=== PATIENT | female | born 1995 | race Caucasian/White ===

== ENCOUNTER 2016-08-16 19:03 | Emergency (ER) | payer MEDICAID ==
[~2016-08-16] VITALS: Ht 157.5 cm; Wt 57.6 kg
[~2016-08-16 19:03] MED LIST: LORTA5 PO; MACR100C PO; ONDA4TAB7 OR; PREN1TAB30 PO; SULF1TAB47 PO; Z.0.NO CURRENT MEDS
--- NOTE | 2016-08-16 19:54 | PD ---
HPI Chief Complaint back pain, decreased movement today, leaking Date Seen: Aug 16, 2016 Time Seen: 19:40 Travel History International Travel<30 Days: No Contact w/Intl Traveler<30Days: No Known Affected Area: No History of Present Illness HPI 21yo at 37 3/7 weeks gestation here for small amount fluid per vagina yesterday and today. Lower back pain since yesterday. Decreased movement today. Sees Dr Sevilla but has been released from the office. No records are available presently. Para: 2 : 3 History Past Medical History Medical History: Denies Significant Hx Obstetric History Obstetric History c-sections x 2 Past Surgical History Narrative Surgical Left hip surgery Right ankle surgery Family History Family History: Negative Social History Alcohol Use: No Tobacco Use: No Substance Abuse: No Allergies-Medications (Allergen,Severity, Reaction): Coded Allergies: No Known Allergies (Verified , 03/15/16) Home Meds Active Scripts Nitrofurantoin Monohyd Macro (Macrobid)100 Mg Btp130 Mg PO BID 7 Days Ref 0 Prov:Lukas Dutta MD 03/16/16 Vit W/ Ferrous Fumara ( Vitamin 27-0.8 mg)1 Tab Tab1 Tab PO DAILY #30 Prov:Melany Colbert MD 01/19/16 Ondansetron (Ondansetron Odt)4 Mg Tab4 Mg OR Q6HPRN #10 Prov:CHARLEY DOMINGUEZ MD 01/23/13 Hydrocodone-Acetaminophen 5-325 mg ([place]wood 5-325 mg)325 Mg/5 Mg Tab1 Tab PO Q4HPRN #15 Prov:CHARLEY DOMINGUEZ MD 01/23/13 Trimethoprim/Sulfamethoxazole (Bactrim Ds) Tab1 Tab PO BID #14 Prov:CHARLEY DOMINGUEZ MD 01/23/13 Reported Medications Miscellaneous (No Current Meds) Misc 04/28/12 Review of Systems Except as stated in HPI: all other systems reviewed are Neg Physical Exam Narrative GENERAL: Well-nourished, well-developed patient. SKIN: Warm and dry. HEAD: Normocephalic and atraumatic. EYES: No scleral icterus. No injection or drainage. ENT: No nasal drainage noted. Mucous membranes pink. Airway patent. NECK: Supple, trachea midline. No JVD. CARDIOVASCULAR: Regular rate and rhythm without murmurs, gallops, or rubs. RESPIRATORY: Breath sounds equal bilaterally. No accessory muscle use. BREASTS: Bilateral exam showed no masses , no retractions, no nipple discharge. ABDOMEN/GI: Abdomen soft, non-tender, bowel sounds present, no rebound, no guarding Gravid to [-] weeks size Fundal Height: [-]36 GENITOURINARY: External Genitalia: intact and normal in appearance BUS glands: [-]nl Cervix: [-]posterior Dilatation: [-] closed Effacement: [-] 0% Station: [-] -3 Presentation: [-]vertex Membranes: [intact or ruptured]no obvious rupture Uterine Contractions: [-]none FHT's: Category: [-] 1 Baseline: [-] 145 Reactive: [-] moderate Variability: [-] mod, accels present Decels: [-] absent EXTREMITIES: No cyanosis or edema. BACK: Nontender without obvious deformity. No CVA tenderness. NEUROLOGICAL: Awake and alert. Motor and sensory grossly within normal limits. Five out of 5 muscle strength in all muscle groups. Normal speech. Data Data Vital Signs Reviewed: Yes [facility] Medical Record Reviewed: No Plan Previous x 2. If patient unable to get into present practice she is referred to [facility] Will need repeat at 39 weeks, no records presently to review Diagnosis Diagnosis: Primary Impression: Decreased movement affecting management of in third trimester Additional Impressions: 37 weeks gestation of Previous delivery affecting , antepartum Disposition: 01 DISCHARGE HOME Enid Akhtar MD Aug 16, 2016 19:54
[2016-08-30] MEDS ORDERED: PREN1CAP33 PO (09:07)
== END 2016-08-16 20:04 | disposition home or self-care (01) ==
LOC: HOBED 19:03
DX: O36.8130 Decreased fetal movements, third trimester, not applicable or unspecified (principal); M54.5 Low back pain; Z3A.37 37 weeks gestation of pregnancy
CPT/HCPCS: 84112; 87081; 99284

== ENCOUNTER 2016-09-03 06:02 | Inpatient (IN) | payer MEDICAID ==
[~2016-09-03] VITALS: Ht 157.5 cm; Wt 60.8 kg
[2016-09-03] VITALS (10 sets, daily range): BP systolic 104–128; BP diastolic 49–86; PULSE 41–98; RESP 17–20; TEMP 97.7–99.1; O2SAT 98–100
[~2016-09-03 06:02] MED LIST changes: -LORTA5 PO; -MACR100C PO; -ONDA4TAB7 OR; +PREN1CAP33 PO; -PREN1TAB30 PO; -SULF1TAB47 PO; -Z.0.NO CURRENT MEDS
[2016-09-03 07:07] LABS: AUTOMATED NEUTROPHIL # 7.3 TH/MM3 (1.8-7.7); BASOPHIL % 0.3 % (0.0-2.0); EOSINOPHIL # 0.1 TH/MM3 (0-0.4); EOSINOPHIL % 0.9 % (0.0-4.0); HEMATOCRIT 29.4 % (35.0-46.0); HEMO FLAGS DIFF FINAL; LYMPH % 28.8 % (9.0-44.0); LYMPHOCYTE # 3.3 TH/MM3 (1.0-4.8); MEAN CELL VOLUME 77.5 FL (80.0-100.0); MEAN CORPUSCULAR HEMOGLOBIN 25.2 PG (27.0-34.0); MEAN CORPUSCULAR HGB CONC 32.5 % (32.0-36.0); PLATELET COUNT 206 TH/MM3 (150-450); RED CELL DISTRIBUTION WIDTH 14.5 % (11.6-17.2); WHITE BLOOD COUNT 11.3 TH/MM3 (4.0-11.0)
[2016-09-03] MEDS ORDERED: LACTATED RINGER'S 1000 ML INJ 1,000 ML IV ONE ×3 (07:26)
--- NOTE | 2016-09-03 07:26 | HHI.HP ---
History & Physical H&P HPI History of Present Illness HPI Patient is a 21-year-old white female previous 2 now 39 wks presents for repeat , she had no complaint of problems baby is active. The records with her she is only [facility] the [facility] two visits started last week. She had very little care prior to that however she did have an important event in January a first trimester ultrasound which gave her due date of 09/10/16 that ultrasound is been documented. That establishes her gestational age as 38 weeks now and she would be 39 weeks this coming Tuesday on the third. She states that also ultrasound done that showed this baby is in a breech presentation Para: 2 : 3 History Obstetric History Obstetric History 2 C-sections and late care with this and very little care prior to that the late onset. Patient did have first trimester ultrasound with this to establish a surgical gestational age. Past Surgical History Narrative Surgical 2 C-sections Family History Family History: Negative Social History Alcohol Use: No Tobacco Use: No Substance Abuse: No Allergies-Medications (Allergen,Severity, Reaction): Coded Allergies: No Known Allergies (Verified , 08/30/16) Home Meds Active Scripts Vit W/ Fe Polysacch C (Vitafol Fe+ 90-1-200 & 50 mg)1 Cap Cap1 Tab PO DAILY #30 BOTTLE Ref 11 Prov:Nataliya Ca 08/30/16 Review of Systems General / Constitutional: No: Fever, Weight Gain, Chills, Other Eyes: No: Diploplia, Blurred Vision, Visual changes, Pain, Photophobia HENT: No: Headaches, Vertigo, Lightheadedness Cardiovascular: No: Irregular Rhythm, Chest Pain or Discomfort, Palpitations, Tachycardia, Syncope, Varicosities, Edema, Cyanosis Respiratory: No: Cough, Short of Breath, Other Gastrointestinal: No: Nausea, Vomiting, Diarrhea Genitourinary: No: Decreased Urinary Output, Oliguria Musculoskeletal: No: Limited ROM, Weakness, Cramping, Edema, Pain Skin: No Rash, No Itching, No Dryness, No Lumps, No Change in Pigmentation, No Change in Nails, No Alopecia, No Lesions Neurologic: No: Weakness, Dizziness, Syncope, Focal Abnormalities, Coordination Problem, Headache, Slurred Speech, Seizures Psychiatric: No: Depression, Suicidal Ideations, Homicidal Ideation Endocrine: No: Heat Intolerance, Cold Intolerance, Polydipsia, Polyuria, Other Physical Exam Narrative GENERAL: Well-nourished, well-developed patient. SKIN: Warm and dry. HEAD: Normocephalic and atraumatic. EYES: No scleral icterus. No injection or drainage. ENT: No nasal drainage noted. Mucous membranes pink. Airway patent. NECK: Supple, trachea midline. No JVD. CARDIOVASCULAR: Regular rate and rhythm without murmurs, gallops, or rubs. RESPIRATORY: Breath sounds equal bilaterally. No accessory muscle use. BREASTS: Bilateral exam showed no masses , no retractions, no nipple discharge. ABDOMEN/GI: Abdomen soft, non-tender, bowel sounds present, no rebound, no guarding Gravid to [36-] weeks size Fundal Height: [36-] MDM Interpretation(s) This patient is a 21-year-old white female previous 2 now 3 9 weeks by first trimester ultrasound presenting for repeat section consultation. That she has not plans problems baby is active. She is had very little care was visit however she did have a first trimester ultrasound establishing her due date is 09/10/16. [facility] was [facility] by [facility] at which we will do at 39 weeks. Plan Plan this patient is for her to return this Tuesday for repeat section for previous section and breech presentation. Diagnosis: previous and breech Disposition: DISCHARGE HOME Condition: Stable Rigo Pierce II, MD Aug 31, 2016 14:06 <Electronically signed by Rigo Pierce II, MD> 08/31/16 1800 Rigo Pierce II, MD Sep 03, 2016 07:26
[2016-09-03 07:34] LABS: BACTERIA, URINE MANY /hpf; BLOOD, URINE NEG (NEG); COMMENT (UR) CULTURE INDICATED; CULTURE IF INDICATED CULTURE INDICATED; GLUCOSE,URINE NEG (NEG); KETONE, URINE NEG (NEG); NITRITE,URINE POS (NEG); PH, URINE 5.5 (5.0-8.5); SQUAMOUS EPITHELIAL CELL URINE 8 /hpf (0-5); URINE COLOR YELLOW (YELLW/STRAW)
[2016-09-03] MEDS ORDERED: LACTATED RINGER'S 1000 ML INJ 1,000 ML IV SCH ×4 (07:56→14:13)
[2016-09-03] MEDS ORDERED: OXYTOCIN 10 UNIT/ML AMP ONE (08:05)
[2016-09-03] MEDS ORDERED: CITRIC ACID-SODIUM CITRATE LIQ 30 ML UDC PO SCH ×3 (09:00)
[2016-09-03] MEDS ORDERED: KETOROLAC TROMETHAMINE 60 MG/2 ML (IM) VIAL IM PRN (09:15)
[2016-09-03] MEDS ORDERED: SODIUM CHLORIDE 0.9% FLUSH 5 ML FLUSH IV PRN (09:15)
[2016-09-03] MEDS ORDERED: SIMETHICONE 80 MG CHEWABLE TAB PO PRN (09:15)
[2016-09-03] MEDS ORDERED: ZOLPIDEM TARTRATE 5 MG TAB PO PRN (09:15)
[2016-09-03] MEDS ORDERED: oxyCODONE/ACETAMINOPHEN 5 MG/325 MG TAB PO PRN (09:15)
[2016-09-03] MEDS ORDERED: ONDANSETRON HCL 4 MG/2 ML VIAL IV PUSH PRN (09:15)
[2016-09-03] MEDS ORDERED: OXYTOCIN 30 UNITS-500ML PREMIX 500 ML IV ONE (09:15)
[2016-09-03] MEDS ORDERED: MORPHINE SULFATE PF 5 MG/10 ML VIAL ONE (09:15)
[2016-09-03] MEDS ORDERED: ACETAMINOPHEN 325 MG TAB PO PRN (09:15)
[2016-09-03] MEDS ORDERED: LACTATED RINGER'S 1,000 ML BAG IV ONE (09:28)
[2016-09-03] MEDS ORDERED: ePHEDrine/NS 50 MG/5 ML SYR IV ONE (09:28)
[2016-09-03] MEDS ORDERED: EPIDURAL-DIPHENHYDRAMINE HCL 50 MG CAP PO PRN (10:45)
[2016-09-03] MEDS ORDERED: EPIDURAL-DO NOT ADMINISTER ANTICOAGULANTS XX PRN (10:45)
[2016-09-03] MEDS ORDERED: EPIDURAL-NALOXONE HCL 0.4 MG/ML AMP IV PRN (10:45)
[2016-09-03] MEDS ORDERED: EPIDURAL-DIPHENHYDRAMINE HCL 50 MG/ML VIAL IV PUSH PRN (10:45)
[2016-09-03] MEDS ORDERED: EPIDURAL-NO SYSTEMIC NARCOTICS XX PRN (10:45)
[2016-09-03] MEDS: HYDROmorphone HCL PF 1 MG/ML VIAL IV PUSH PRN ×3 (12:17→20:59)
[2016-09-03] MEDS ORDERED: HYDROmorphone HCL PF 2 MG/ML VIAL IV PUSH PRN (12:30)
[2016-09-03] MEDS ORDERED: HYDROmorphone HCL PF 1 MG/ML VIAL IV PUSH PRN (12:30)
[2016-09-03] MEDS ORDERED: ALUMINUM/MAGNESIUM/SIMETH 30 ML CUP PO PRN (17:45)
[2016-09-03] MEDS ORDERED: OXYTOCIN 30 UNITS-500ML PREMIX 500 ML IV PRN (19:15)
[2016-09-03] MEDS ORDERED: SODIUM CHLORIDE 0.9% FLUSH 5 ML FLUSH IV SCH (21:00)
[2016-09-04] MEDS: oxyCODONE/ACETAMINOPHEN 5 MG/325 MG TAB PO PRN ×2 (04:22→16:26)
[2016-09-04] MEDS: DOCUSATE SODIUM 50 MG/SENNA 8.6 MG TAB PO PRN ×2 (04:22→12:23)
[2016-09-04] MEDS: IBUPROFEN 600 MG TAB PO PRN ×3 (04:23→21:30)
[2016-09-04 05:01] LABS: AUTOMATED NEUTROPHIL # 9.8 TH/MM3 (1.8-7.7); BASOPHIL % 0.1 % (0.0-2.0); EOSINOPHIL % 0.4 % (0.0-4.0); LYMPH % 11.6 % (9.0-44.0); LYMPHOCYTE # 1.4 TH/MM3 (1.0-4.8); MEAN CELL VOLUME 77.7 FL (80.0-100.0); MEAN CORPUSCULAR HEMOGLOBIN 25.8 PG (27.0-34.0); MEAN CORPUSCULAR HGB CONC 33.2 % (32.0-36.0); MONO % 7.1 % (0.0-8.0); NEUT % 80.8 % (16.0-70.0); PLATELET COUNT 153 TH/MM3 (150-450); RED BLOOD COUNT 2.69 MIL/MM3 (4.00-5.30); RED CELL DISTRIBUTION WIDTH 14.2 % (11.6-17.2); WHITE BLOOD COUNT 12.1 TH/MM3 (4.0-11.0)
[2016-09-04 05:20] LABS: HEMO FLAGS DIFF FINAL
[2016-09-04 05:22] LABS: HEMATOCRIT 20.9 % (35.0-46.0)
[2016-09-04 05:30] VITALS: BP 112/64; PULSE 95; RESP 18; TEMP 99.6; O2SAT 98
[2016-09-04 08:00] VITALS: BP 120/70; PULSE 80; RESP 18; TEMP 98.1
--- NOTE | 2016-09-04 09:04 | HHI.OB ---
Subjective Post Operative Day: 1 Remarks Pt seen and examined this morning. Postoperative day # 1 AFVSS overnight. Incision not draining. Decreased lochia. Denies dysuria. No breast tenderness. She is feeding the baby via breast and bottle. Appetite good. No nausea or vomiting. Patient has not yet had a bowel movement. -flatus. Ambulating well. Denies calf pain or shortness of breath. Otherwise, she is doing well this morning and has no other concerns. Objective Vitals/I&O Vital Signs Date Time Temp Pulse Resp B/P Pulse Ox O2 Delivery O2 Flow Rate FiO2 09/04/16 05:30 99.6 18 98 09/04/16 05:30 95 112/64 09/03/16 23:55 94 18 128/74 09/03/16 23:55 99.1 09/03/16 20:30 99.0 93 20 108/86 09/03/16 10:40 97.7 66 18 121/67 09/03/16 10:15 98.2 09/03/16 10:15 18 116/60 09/03/16 10:13 75 100 09/03/16 10:00 108/63 09/03/16 09:57 99 09/03/16 09:57 77 09/03/16 09:45 75 09/03/16 09:45 41 104/49 99 09/03/16 09:30 18 09/03/16 09:30 81 109/67 98 09/03/16 09:15 98 17 117/60 99 09/03/16 09:15 97.7 Result Diagram: 09/04/16 0440 Objective Remarks GENERAL: Well-nourished, well-developed patient. CARDIOVASCULAR: Regular rate and rhythm without murmurs, gallops, or rubs. RESPIRATORY: Breath sounds equal bilaterally. No accessory muscle use. ABDOMEN/GI: Abdomen soft, non-tender, bowel sounds present. Incision: Clean, dry and intact. Fundus: Firm, non-tender at umbilicus. GENITOURINARY: Light to moderate bleeding. EXTREMITIES: No cyanosis or edema, non-tender, without signs of DVT. Medications and IVs Current Medications Medications (Trade) Dose Ordered Sig/Deb Route Start Time Stop Time Status Last Admin Lactated Ringer's 1,000 ml @ 150 mls/hr Q6H40M IV 09/03/16 07:56 09/03/16 08:00 (Lr 1000 ml Inj) 1,000 ml @ 100 mls/hr Q10H IV 09/03/16 14:13 09/04/16 10:12 09/03/16 16:46 (NS Flush) 2 ml BID IV 09/03/16 21:00 (NS Flush) 2 ml UNSCH PRN IV 09/03/16 09:15 (Mylicon Chew) 80 mg QID PRN PO 09/03/16 09:15 09/03/16 20:12 (Tylenol) 650 mg Q6H PRN PO 09/03/16 09:15 (Motrin) 600 mg Q6H PRN PO 09/03/16 09:15 09/04/16 04:23 (Toradol Inj) 30 mg Q6H PRN IM 09/03/16 09:15 09/04/16 09:14 (Percocet 5-325 Mg) 1 tab Q4H PRN PO 09/03/16 09:15 (Percocet 5-325 Mg) 2 tab Q4H PRN PO 09/03/16 09:15 09/04/16 04:22 (Wanda-Colace) 2 tab Q12H PRN PO 09/03/16 09:15 09/04/16 04:22 (Ambien) 5 mg HS PRN PO 09/03/16 09:15 (M-M-R Ii Inj) 0.5 ml ONCE ONCE SQ 09/04/16 16:00 09/04/16 16:01 (Boostrix Inj) 0.5 ml ONCE ONCE IM 09/04/16 16:00 09/04/16 16:01 (Zofran Inj) 4 mg Q6H PRN IV PUSH 09/03/16 09:15 Miscellaneous Information NO SYSTEMIC NARCOTICS TO BE GIVEN FO... UNSCH PRN XX 09/03/16 10:45 09/04/16 10:44 (Narcan Inj) 0.4 mg UNSCH PRN IV 09/03/16 10:45 09/04/16 10:44 (Benadryl Inj) 25 mg Q6H PRN IV PUSH 09/03/16 10:45 09/04/16 10:44 09/04/16 00:16 (Benadryl) 50 mg Q6H PRN PO 09/03/16 10:45 09/04/16 10:44 Miscellaneous Information ALL NURSING DEPARTMENTS UNSCH PRN XX 09/03/16 10:45 09/04/16 10:44 (Dilaudid Pf Inj) 1 mg Q4H PRN IV PUSH 09/03/16 13:00 09/03/16 20:59 (Dilaudid Pf Inj) 1 mg Q4H PRN IV PUSH 09/03/16 12:30 (Dilaudid Pf Inj) 2 mg Q4H PRN IV PUSH 09/03/16 12:30 (Mag-Al Plus Susp Liq) 30 ml Q6H PRN PO 09/03/16 17:45 Assessment/Plan Problem List: (1) delivery delivered Assessment and Plan 21 y/o female who is POD# 1 s/p CXN. 1) s/p Repeat -Continue routine care. -Percocet and Motrin PRN pain. -Encouraged OOB. Advised pelvic rest for 6 wks. Will need a f/u appt. in 1-2 wks for incision check. -[employer]PH[employer] provider: [facility] -Re: ctrl, she would like consider her options. 2) Anemia -Hemoglobin low this morning at 6.9. Pt denies feeling light headed or dizzy. -Repeat CBC at 12:00. Consider transfusing if hemoglobin is less than 6.9. 3) Equivocal Rubella antibody IGG Pt refuses to have any MMR vaccine at this time She was advised that it will remain available to her 4) UA with culture indicated Urine with hazy appearance, positive nitrites, large leukocyte esterase, Many bacteria Culture results pending Keflex 500mg po BID (09/04- ) Pt previously received Ancef -Anticipate discharge in 2 days. dw MD Miguel Lutz Mariaah MD R2 Sep 04, 2016 09:04
[2016-09-04] MEDS: CEPHALEXIN MONOHYDRATE 500 MG CAP PO SCH ×2 (12:23→21:30)
[2016-09-04] MEDS: FERROUS SULFATE 325 MG (65 MG ELEMENTAL IRON) TAB PO SCH ×2 (12:23→21:30)
[2016-09-04 13:45] LABS: AUTOMATED NEUTROPHIL # 7.6 TH/MM3 (1.8-7.7); BASOPHIL % 0.2 % (0.0-2.0); EOSINOPHIL % 0.4 % (0.0-4.0); LYMPH % 19.7 % (9.0-44.0); LYMPHOCYTE # 2.1 TH/MM3 (1.0-4.8); MEAN CELL VOLUME 79.2 FL (80.0-100.0); MEAN CORPUSCULAR HEMOGLOBIN 25.4 PG (27.0-34.0); MEAN CORPUSCULAR HGB CONC 32.1 % (32.0-36.0); MONO % 7.9 % (0.0-8.0); NEUT % 71.8 % (16.0-70.0); PLATELET COUNT 150 TH/MM3 (150-450); RED CELL DISTRIBUTION WIDTH 14.5 % (11.6-17.2); WHITE BLOOD COUNT 10.6 TH/MM3 (4.0-11.0)
[2016-09-04 13:52] LABS: HEMO FLAGS DIFF FINAL
[2016-09-04 13:54] LABS: HEMATOCRIT 20.6 % (35.0-46.0)
[2016-09-04] MEDS ORDERED: diphenhydrAMINE HCL 25 MG CAP PO PRN (14:15)
[2016-09-04] MEDS ORDERED: SODIUM CHLOR 0.9% 250 ML INJ 250 ML IV ONE (14:15)
[2016-09-04] MEDS ORDERED: DIPHTH/TETANUS/ACEL PERTUSSIS (BOOSTER) 0.5 ML VIAL/PFS IM ONE (16:00)
[2016-09-04] MEDS ORDERED: MEASLES, MUMPS, RUBELLA VACCINE 0.5 ML VIAL SQ ONE (16:00)
[2016-09-04 20:05] VITALS: BP 127/75; PULSE 96; RESP 20; TEMP 98.4; O2SAT 100
[2016-09-04] MEDS ORDERED: LIDOCAINE HCL 1% PF 30 ML VIAL ONE (20:59)
[2016-09-04 21:00] VITALS: BP 127/75
--- NOTE | 2016-09-04 21:00 | MP ---
cc: FRANCESCA PIERCE MD DATE OF SURGERY 09/03/16 PREOPERATIVE DIAGNOSIS Previous caesarean section, desires repeat at term. POSTOPERATIVE DIAGNOSIS Previous caesarean section, desires repeat at term. PROCEDURE Repeat low transverse caesarean section SURGEON Gene Pierce MD ANESTHESIA Spinal INDICATIONS The patient is a 21 year old white female , previous caesarean section times two who requests repeat caesarean section at term, was now 39 weeks with scheduled section. PROCEDURE IN DETAIL This patient was taken to the operating room, placed in supine position operating room table with adequate spinal anesthesia administered. She was prepped and draped for abdominal surgery. Previous Pfannenstiel incision was excised out and carried to the fascia sharply. Fascia dissected laterally off the rectus muscle. The peritoneal dialysis entered sharply and the incision was extended superior and inferiorly with care used to avoid the bladder which was then placed on the bladder blade. The incision was stretched open. The visceral peritoneum reflected off the lower uterine segment and transverse hysterotomy was made extended bluntly bilaterally. A clear fluid noted. A male infant was delivered at 8:34 a.m. weighed 7 lb. 1 oz. Apgars 9 and 9. There were no complications. Delivery of cord blood obtained. Placenta manually extracted. The uterus exteriorized. The hysterotomy closed in running layer of 0 Chromic followed by imbricating suture of same. Hemostasis was achieved with several small stick ties. The bladder reapproximated with a running layer of 2-0 Vicryl. The uterus elevated and blood suctioned with gutters. The uterus replaced in peritoneal cavity. The parieto-peritoneum closed in running layer of 2-0 Vicryl. The fascia then closed in a running layer of 0 Vicryl. Subcutaneous tissue was reapproximated using 3-0 plain suture. Skin closed with a subcuticular stitch of 3-0 Monocryl. Pressure dressing applied. Estimated blood loss 500 mL. No complications. Sponge and needle correct times two and the patient went to recovery in stable condition. MD GILBERT Farias/ /9:19 AM /8:44 PM
[2016-09-04 21:35] VITALS: BP 107/71; PULSE 91; RESP 17; O2SAT 100
[2016-09-04 23:03] VITALS: BP 118/72; PULSE 82; RESP 18; TEMP 98.4; O2SAT 100
[2016-09-05] MEDS: IBUPROFEN 600 MG TAB PO PRN ×2 (02:36→08:07)
[2016-09-05] MEDS: oxyCODONE/ACETAMINOPHEN 5 MG/325 MG TAB PO PRN ×3 (02:37→12:46)
--- NOTE | 2016-09-05 07:27 | HHI.OB ---
Subjective Post Operative Day: 2 Remarks Patient seen and examined this morning. Postoperative day #2 s/p repeat c- section. AFVSS overnight. She reports no issues or complaints after blood transfusion last night. Reports decreased lochia. Denies dysuria or hematuria. No breast tenderness. Incision is clean, not draining. She is feeding the baby via breast and bottle. Denies nausea or vomiting. Patient has not yet had a bowel movement, also denies flatus. Ambulating well without issues. Denies calf pain or shortness of breath. She has no other complains this morning. ( Alexey Joyner MD R1) Remarks Patient seen and evaluated with resident under direct supervision, agree with assessment and plan. (Gamal Stevens MD) Objective Vitals/I&O Vital Signs Date Time Temp Pulse Resp B/P Pulse Ox O2 Delivery O2 Flow Rate FiO2 09/04/16 23:03 98.4 82 18 118/72 100 09/04/16 21:35 91 17 107/71 100 09/04/16 21:00 127/75 09/04/16 20:05 127/75 09/04/16 20:05 98.4 96 20 100 09/04/16 08:00 98.1 80 18 120/70 (Alexey Joyner MD R1) Result Diagram: 09/04/16 1229 Objective Remarks GENERAL: Well-nourished, well-developed patient. CARDIOVASCULAR: Regular rate and rhythm without murmurs, gallops, or rubs. RESPIRATORY: Breath sounds equal bilaterally. No accessory muscle use. ABDOMEN/GI: Abdomen soft, non-tender, bowel sounds present. Incision: Clean, dry and intact. Fundus: Firm, non-tender at umbilicus. GENITOURINARY: Light to moderate bleeding. EXTREMITIES: No cyanosis or edema, non-tender, without signs of DVT. Medications and IVs Current Medications Medications (Trade) Dose Ordered Sig/Deb Route Start Time Stop Time Status Last Admin (Lr 1000 ml Inj) 1,000 ml @ 150 mls/hr Q6H40M IV 09/03/16 07:56 09/03/16 08:00 (NS Flush) 2 ml BID IV 09/03/16 21:00 (NS Flush) 2 ml UNSCH PRN IV 09/03/16 09:15 (Mylicon Chew) 80 mg QID PRN PO 09/03/16 09:15 09/03/16 20:12 (Tylenol) 650 mg Q6H PRN PO 09/03/16 09:15 (Motrin) 600 mg Q6H PRN PO 09/03/16 09:15 09/05/16 02:36 (Percocet 5-325 Mg) 1 tab Q4H PRN PO 09/03/16 09:15 09/04/16 21:31 (Percocet 5-325 Mg) 2 tab Q4H PRN PO 09/03/16 09:15 09/05/16 02:37 (Wanda-Colace) 2 tab Q12H PRN PO 09/03/16 09:15 09/04/16 12:23 (Ambien) 5 mg HS PRN PO 09/03/16 09:15 (Zofran Inj) 4 mg Q6H PRN IV PUSH 09/03/16 09:15 (Dilaudid Pf Inj) 1 mg Q4H PRN IV PUSH 09/03/16 13:00 09/03/16 20:59 (Dilaudid Pf Inj) 1 mg Q4H PRN IV PUSH 09/03/16 12:30 (Dilaudid Pf Inj) 2 mg Q4H PRN IV PUSH 09/03/16 12:30 (Mag-Al Plus Susp Liq) 30 ml Q6H PRN PO 09/03/16 17:45 (Ferrous Sulfate) 325 mg BID PO 09/04/16 09:30 09/04/16 21:30 (Keflex) 500 mg Q12HR PO 09/04/16 11:45 09/04/16 21:30 (Alexey Joyner MD R1) Assessment/Plan Problem List: (1) delivery delivered Assessment and Plan 21 y/o female POD#2 s/p CXN. 1) s/p Repeat - Continue routine care - Percocet and Motrin PRN pain - Encouraged OOB. Advised pelvic rest for 6 wks. Will need a f/u appt. in 1-2 wks for incision check. - RO[employer] provider: [facility] - Re: ctrl, still considering options 2) Anemia - Hemoglobin low yesterday morning at 6.9. Now s/p 2 units RBCs - Patient denies fatigue, lightheadedness, or dizziness. No issues ambulating - Repeat CBC this AM 3) Equivocal Rubella antibody IGG Pt refuses to have any MMR vaccine at this time She was advised that it will remain available to her 4) UA with culture indicated Urine with hazy appearance, positive nitrites, large leukocyte esterase, Many bacteria Culture returning group D enterococcus Keflex 500mg po BID (09/04- ) Pt previously received Ancef (Alexey Joyner MD R1) Alexey Joyner MD R1 Sep 05, 2016 07:27 Gamal Stevens MD Sep 19, 2016 10:05
[2016-09-05] MEDS ORDERED: OXYC1TAB63 PO ×2 (07:59→08:37)
--- NOTE | 2016-09-05 07:59 | HHI.DCPOC ---
Discharge Care Plan Diagnosis: (1) delivery delivered (2) Anemia Report Symptoms to Your Doctor -Temperate above 100.5 degrees -Redness, of incision or excessive or foul smelling drainage -Unusual pain or calf pain -Increased vaginal bleeding -Painful or difficulty urinating -Feelings of extreme sadness or anxiety after 2 weeks Goals to Promote Your Health * To prevent worsening of your condition and complications * To maintain your health at the optimal level Directions to Meet Your Goals Take your medications as prescribed Follow your dietary instruction Follow activity as directed Ensure plenty of rest for recovery Drink fluids for hydration Keep your appointments as scheduled Take your immunizations and boosters as scheduled If your symptoms worsen call your PCP, if no PCP go to Urgent Care Center or Emergency Room Smoking is Dangerous to Your Health. Avoid second hand smoke Call the 24-hour crisis hotline for domestic abuse at Alexey Joyner MD R1 Sep 05, 2016 07:59 Gamal Stevens MD Sep 05, 2016 08:38
[2016-09-05 08:00] VITALS: BP 116/75; PULSE 88; RESP 16; TEMP 98.5
[2016-09-05] MEDS: FERROUS SULFATE 325 MG (65 MG ELEMENTAL IRON) TAB PO SCH (08:06)
[2016-09-05] MEDS: CEPHALEXIN MONOHYDRATE 500 MG CAP PO SCH (08:06)
[2016-09-05] MEDS: DOCUSATE SODIUM 50 MG/SENNA 8.6 MG TAB PO PRN (08:06)
[2016-09-05] MEDS ORDERED: SENN1TAB PO (08:37)
[2016-09-05] MEDS ORDERED: IBUP-232 PO (08:38)
[2016-09-05] MEDS ORDERED: SPRI28TA PO (08:48)
[2016-09-05] MEDS ORDERED: ZOVI5CRE3 TOPICAL (08:48)
[2016-09-05 10:42] LABS: HEMATOCRIT 29.1 % (35.0-46.0); MEAN CELL VOLUME 78.9 FL (80.0-100.0); MEAN CORPUSCULAR HEMOGLOBIN 25.5 PG (27.0-34.0); MEAN CORPUSCULAR HGB CONC 32.3 % (32.0-36.0); PLATELET COUNT 186 TH/MM3 (150-450); RED BLOOD COUNT 3.68 MIL/MM3 (4.00-5.30); RED CELL DISTRIBUTION WIDTH 15.3 % (11.6-17.2); REVIEW FLAG FINAL; WHITE BLOOD COUNT 11.5 TH/MM3 (4.0-11.0)
[2016-09-05] MEDS ORDERED: CEPH500C PO (13:22)
== END 2016-09-05 13:46 | disposition home or self-care (01) | DRG 766 ==
LOC: H2EB 06:02 → H1EA 10:38
PROVIDERS: ADMIT Obstetrics & Gynecology Maternal & Fetal Medicine; ATTEND Obstetrics & Gynecology Maternal & Fetal Medicine
PROC: 10D00Z1 Extraction of Products of Conception, Low, Open Approach (ICD-10-PCS; principal; 2016-09-03)
PROC: 30253N1 (ICD-10-PCS; 2016-09-03)
DX: O32.1XX0 Maternal care for breech presentation, not applicable or unspecified (principal); D64.9 Anemia, unspecified; O99.02 Anemia complicating childbirth; O34.211 Maternal care for low transverse scar from previous cesarean delivery; Z37.0 Single live birth; Z3A.39 39 weeks gestation of pregnancy
CPT/HCPCS: 36430; 59025; 81001; 85025; 85027; 86850; 86900; 86901; 86920; 87077; 87086; 87186; J0690; J1170; J1200; J2274; J2590; J3010; J7120; P9016